=== PATIENT | male | born 1995 | race Caucasian/White ===

== ENCOUNTER 2016-07-07 20:46 | Emergency (ER) | payer OTHER ==
[~2016-07-07] VITALS: Ht 160 cm; Wt 55.0 kg
[2016-07-07 20:50] VITALS: BP 134/69; PULSE 86; RESP 16; TEMP 98.2; O2SAT 100
--- NOTE | 2016-07-07 22:39 | PD ---
HPI Chief Complaint: Injury Time Seen by Provider: 22:37 Travel History International Travel<30 days: No Contact w/Intl Traveler<30days: No Traveled to known affect area: No History of Present Illness HPI Patient comes in complaining of right ankle pain occurred while playing a soccer match today. Patient stated his right foot was planted when another player slid into his leg causing him to twist his right ankle. Patient applied ice prior to coming to the emergency department denies doing anything else for this. Patient describes pain is pressure-like in nature without radiation. Pain is worse with palpation and standing. Denies any numbness or tingling. [facility] Past Medical History Medical History: Denies Significant Hx Immunizations Current: Yes Tetanus Vaccination: Unknown Influenza Vaccination: No Social History Alcohol Use: No Tobacco Use: No Substance Use: No Allergies-Medications (Allergen,Severity, Reaction): Coded Allergies: No Known Allergies (Unverified , 07/07/16) Reported Meds & Prescriptions Reported Meds & Active Scripts Active No Active Prescriptions or Reported Medications Review of Systems Except as stated in HPI: all other systems reviewed are Neg Physical Exam Narrative GENERAL: Well-developed, well nourished, in no acute distress, and non-ill appearing. SKIN: Warm and dry. HEAD: Atraumatic. Normocephalic. EYES: Pupils equal and round. EOMI. No scleral icterus. No injection or drainage. ENT: No nasal bleeding or discharge. Mucous membranes pink and moist. NECK: Trachea midline. Supple. No nuclear rigidity. CARDIOVASCULAR: Dorsal pulses 2+, intact, equal bilaterally. Capillary refill less than 2 seconds. RESPIRATORY: No accessory muscle use. No respiratory distress. MUSCULOSKELETAL: No obvious deformities. No clubbing. No cyanosis. No edema. Decreased range of motion right ankle secondary to pain. Ankle: Neagative anterior draw and Horton test. Negative Melissa's sign. No laxity noted with passive inversion and eversion of BL ankles. Negative squeeze test. Pulses equal BL distal to injury. Capillary refill less than 2 seconds distal to injury and equal BL. Sensation equal BL 1st web space. FROM of toes distal to injury and equal BL. NV intact distal to injury and equal BL. Dorsal pulses equal BL. Patient reports tenderness to palpation over lateral aspect of right ankle. There is soft tissue swelling noted over lateral aspect right ankle. NEUROLOGICAL: Awake and alert. No obvious cranial nerve deficits. Motor grossly within normal limits. Normal speech. PSYCHIATRIC: Appropriate mood and affect; insight and judgment normal. Data Data Last Documented VS Vital Signs Date Time Temp Pulse Resp B/P Pulse Ox O2 Delivery O2 Flow Rate FiO2 07/07/16 20:50 98.2 86 16 134/69 100 Orders Ankle, Complete ([id number]) (07/07/16 ) Ice/Cold Pack (07/07/16 22:36) Naproxen (Naprosyn) (07/07/16 22:45) Splint Or Brace Apply/Monitor (07/07/16 23:14) [facility] Medical Decision Making Medical Screen Exam Complete: Yes Emergency Medical Condition: Yes Differential Diagnosis Fracture, sprain, contusion, other Narrative Course There is no clinical evidence for fracture. There is no clinical evidence to suspect bony injury by exam. Radiographic examination revealed no fracture seen at this time. No obvious ligamental injury or internal derangement is noted at this time. The distal extremity appears neurovascularly intact, without evidence of neurovascular injury nor compartment syndrome. Tendon exam also was intact. The effected limb was splinted. The patient was discharged with sprain and splint care instructions and given warnings for vascular compromise. The patient is to follow up with Orthopedics. The patient agrees with plan. Patient in no obvious distress upon re-evaluation. All pertinent Radiology result(s) discussed with patient. Any questions/concerns in reference to patient diagnosis/condition discussed and clarified prior to patient's discharge. Reinforced sheer importance of close follow up with patient's primary physician or primary care clinic and/or orthopedics. Instructed patient to return to ED immediately, if symptoms return/worsen. Pt showed understanding of above instructions. Further instructions and recommendations were detailed in discharge paperwork. Pt ambulated without difficulty out of ED at discharge. Diagnosis Primary Impression: Right ankle sprain Qualified Code: S93.401A - Sprain of right ankle, unspecified ligament, initial encounter Referrals: Jorge Luis Sinha MD Patient Instructions: Ankle Sprain (ED), Ankle Stirrup Splint (ED), Crutch Instructions (ED), General Instructions Additional Instructions: Follow-up with your primary care physician and/or orthopedics in 3-5 days for reevaluation. Use [id number] Tylenol and/or ibuprofen as needed for pain. Follow instructions on the packaging. Apply ice affected area 20 minutes per hour as needed for pain. Return to the emergency department if symptoms get worse. Scripts No Active Prescriptions or Reported Meds Disposition: 01 DISCHARGE HOME Condition: Stable Antonio Aguilera Jul 07, 2016 22:39
[2016-07-07] MEDS ORDERED: NAPROXEN 500 MG TAB PO ONE (22:45)
--- NOTE | 2016-07-07 23:01 | RADRPT ---
EXAM DATE/TIME: 07/07/2016 22:33 [facility] COMPARISON: No previous studies available for comparison. INDICATIONS : Left lateral ankle pain with swelling. MEDICAL HISTORY : None. SURGICAL HISTORY : None. ENCOUNTER: Initial ACUITY: 1 day PAIN SCORE: 8/10 LOCATION: Left lateral ankle FINDINGS: Mild soft-tissue swelling is noted involving the lateral malleolus. There is no acute fracture or di slocation of the right ankle. The ankle mortise is intact. CONCLUSION: 1. Mild soft-tissue swelling overlying the lateral malleolus. 2. No acute fracture or dislocation. Slim Salazar MD on July 07, 2016 at 22:54 Board Certified Radiologist. This report was verified electronically.
== END 2016-07-07 23:52 | disposition home or self-care (01) ==
LOC: NEPB 20:46
DX: S93.401A Sprain of unspecified ligament of right ankle, initial encounter (principal); W50.0XXA Accidental hit or strike by another person, initial encounter; Y93.66 Activity, soccer
CPT/HCPCS: 73610; 99283; E0113; L1906

== ENCOUNTER 2016-07-21 19:12 | Emergency (ER) | payer OTHER ==
[~2016-07-21] VITALS: Ht 162.6 cm; Wt 57.0 kg
[2016-07-21 19:14] VITALS: BP 127/66; PULSE 66; RESP 16; TEMP 98.3; O2SAT 97
--- NOTE | 2016-07-21 19:19 | PD ---
Physical Exam Time Seen by Provider: 19:18 Narrative 21 y/o male with R ankle pain for two weeks, wants reevaluation. Seen here at end of june for same issue. Xray negative for fracture. VSS seen at triage desk. Awaiting bed placement. Data Data Last Documented VS Vital Signs Date Time Temp Pulse Resp B/P Pulse Ox O2 Delivery O2 Flow Rate FiO2 07/21/16 19:14 98.3 66 16 127/66 97 MDM Medical Record Reviewed: Yes Supervised Visit with CELESTE: Yes Scripts No Active Prescriptions or Reported Meds Zhou Summers Jul 21, 2016 19:19
--- NOTE | 2016-07-21 19:37 | PD ---
HPI Chief Complaint: Injury Time Seen by Provider: 19:33 Travel History International Travel<30 days: No Contact w/Intl Traveler<30days: No Traveled to known affect area: No History of Present Illness HPI 21-year-old male presents emergency department for recheck of a right ankle injury. He states that he was injured playing soccer 2 weeks ago. He was seen in the emergency department and had an x-ray which was negative. He was given crutches and a splint. He states that he had uses crutches and splint up until yesterday. He started walking on his foot today but still has significant discomfort. He states that he has not been able to follow-up with an orthopedist. He states he had called and they had referred him back to the ER. He denies any other injuries. He has some decreased sensation to the top of his foot. He still has significant pain and swelling. PFSH Past Medical History Medical History: Denies Significant Hx Immunizations Current: Yes Tetanus Vaccination: < 5 Years Past Surgical History Surgical History: No Previous Surgery Social History Alcohol Use: No Tobacco Use: No Substance Use: No Allergies-Medications (Allergen,Severity, Reaction): Coded Allergies: No Known Allergies (Unverified , 07/21/16) Reported Meds & Prescriptions Reported Meds & Active Scripts Active No Active Prescriptions or Reported Medications Review of Systems Except as stated in HPI: all other systems reviewed are Neg Physical Exam Narrative GENERAL: This is a well-nourished, well-developed patient, in no apparent distress. SKIN: No rashes, ecchymoses or lesions. Warm and dry. HEAD: Atraumatic. Normocephalic. EYES: PERRL, EOMI, no discharge or injection. No scleral icterus. EARS: Clear NOSE: Nasal turbinates appear normal. THROAT: Mucosa pink and moist. Airway patent. NECK: Trachea midline. supple, moves head freely. LUNGS: Clear to auscultation. CV: Regular in rhythm. ABDOMEN: Soft nontender. EXT: No clubbing cyanosis or edema. Examination of the right lower extremity reveals mild to moderate swelling of the foot up into the ankle. He states he has hypoesthesia to the dorsal proximal aspect of the forefoot. He has tenderness over the medial lateral malleolus as well as the anterior talar fibular and posterior talofibular ligament region. He has decreased range of motion due to pain. No draw. He is able to ambulate but has an antalgic gait. He has intact pulses. Data Data Last Documented VS Vital Signs Date Time Temp Pulse Resp B/P Pulse Ox O2 Delivery O2 Flow Rate FiO2 07/21/16 19:36 66 16 97 Room Air 07/21/16 19:14 98.3 127/66 Orders Ankle, Complete ([id number]) (07/21/16 19:29) MDM Medical Decision Making Medical Screen Exam Complete: Yes Emergency Medical Condition: Yes Medical Record Reviewed: Yes Interpretation(s) Right ankle: Negative for acute bony injury. Positive soft tissue swelling. Differential Diagnosis MDM: High Differential diagnoses: Fracture, sprain, strain, dislocation, contusion, neurovascular injury Narrative Course Repeat x-rays of the right ankle are negative for bony injury. The patient's advised to follow-up with podiatry. This right ankle sprain Diagnosis Primary Impression: Right ankle sprain Qualified Code: S93.431D - Sprain of tibiofibular ligament of right ankle, subsequent encounter Referrals: Jose Rafael [facility] 3 days Patient Instructions: General Instructions Additional Instructions: Rest. Elevation. Ice packs for the next 3 days. Continue to wear your splint and use crutches for additional support. Limited weightbearing. Continued 3 Advil 3 times daily. Follow-up with informatics nurse specialist one week. Return to the ER if any problems Med/Other Pt SpecificInfo: No Meds Exist/No RX given Scripts No Active Prescriptions or Reported Meds Disposition: 01 DISCHARGE HOME Condition: Stable Kendrick Shane Jul 21, 2016 19:37
--- NOTE | 2016-07-21 20:44 | RADRPT ---
EXAM DATE/TIME: 07/21/2016 19:42 [facility] COMPARISON: ANKLE RIGHT COMPLETE ([id number]), July 07, 2016, 22:33. INDICATIONS : Twisted ankle playing soccer pain on lateral ankle. MEDICAL HISTORY : None. SURGICAL HISTORY : None. ENCOUNTER: Initial ACUITY: 1 day PAIN SCORE: 5/10 LOCATION: Right lateral ankle FINDINGS: Three view exam was performed of the right ankle. The bony structures are in normal alignment. No e vidence of acute fracture or malalignment. There is soft tissue swelling over the lateral malleolus. The ankle mortise is intact. No radiopaque foreign bodies are seen. Bony mineralization is normal. CONCLUSION: Soft tissue swelling with no acute fracture or malalignment. Lewis Rosario MD on July 21, 2016 at 20:36 Board Certified Radiologist. This report was verified electronically.
== END 2016-07-21 20:42 | disposition home or self-care (01) ==
LOC: NEPK 19:12
DX: S93.401A Sprain of unspecified ligament of right ankle, initial encounter (principal); X58.XXXA Exposure to other specified factors, initial encounter; Y93.66 Activity, soccer
CPT/HCPCS: 73610; 99283